=== PATIENT | male | born 1960 | race Caucasian/White ===

== ENCOUNTER 2020-10-05 12:07 | Emergency (ER) | payer SELFPAY ==
[~2020-10-05] VITALS: Ht 165.1 cm; Wt 87.0 kg
[2020-10-05] MEDS ORDERED: IBUPROFEN 600MG TABLET PO STA (12:45)
[2020-10-05 12:54] VITALS: BP 127/87
[2020-10-05] MEDS ORDERED: NAPR-681 PO (13:34)
== END 2020-10-05 13:51 | disposition home or self-care (01) ==
LOC: ER 13:40
DX: S83.8X1A Sprain of other specified parts of right knee, initial encounter (principal); E11.9 Type 2 diabetes mellitus without complications; W50.2XXA Accidental twist by another person, initial encounter; Y93.89 Activity, other specified; Y92.89 Other specified places as the place of occurrence of the external cause; Y99.8 Other external cause status
CPT/HCPCS: 73562; 99283; C1893; Z7610